=== PATIENT | male | born 1985 | race Caucasian/White ===

== ENCOUNTER 2019-04-12 13:41 | Emergency (ER) | payer BC ==
--- NOTE | 2019-04-12 14:00 | Emergency Department Record ---
History of Present Illness - General Chief complaint: Pain Stated complaint: PAIN RT SHOULDER/PEC MUSCLE Time Seen by Provider: 04/12/19 13:51 Source: Patient Mode of Arrival: Ambulatory Limitations: No limitations - History of Present Illness Initial comments: The patient is here due to R anterior shoulder and upper chest pain for 4 days. He was drinking and he was wrestling with a large man and woke up the next day with pain over the anterior shoulder. The pain is much worse with any bending, twisting or lifting of the R arm and shoulder. He denies any head injury or trauma or arm numbness. MD Complaint: Extremity pain, Other Onset/Timin -: Days(s) Severity scale (1-10): 2 Improves with: Nothing Worsens with: Exertion, Other - Related Data Home Medications Medication Instructions Recorded Confirmed Last Taken Aripiprazole [Abilify] 10 mg PO DAILY 04/12/19 04/12/19 04/12/19 Sertraline HCl [Zoloft] 50 mg PO DAILY 04/12/19 04/12/19 04/12/19 Previous Rx's Medication Instructions Recorded Naproxen [Naprosyn] 500 mg PO BID #14 tablet. 04/12/19 Allergies Allergy/AdvReac Type Severity Reaction Status Date / Time No Known Allergies Allergy none Verified 04/12/19 13:52 Travel Screening - Travel/Exposure Within Last 30 Days Have you traveled within the last 30 days?: No - Travel/Exposure Within Last Year Have you traveled outside the [place] in the last year?: No - Additonal Travel Details Have you been exposed to anyone with a communicable illness?: No Review of Systems Constitutional: Denies: Chills, Fever Eyes: Denies: Eye discharge ENT: Denies: Congestion Respiratory: Denies: Cough, Hemoptysis Past Medical History - SOCIAL HISTORY Smoking Status: Current every day smoker Alcohol Use: Occasional Drug Use: None - RESPIRATORY Hx Respiratory Disorders: No - CARDIOVASCULAR Hx Cardio Disorders: No - NEURO Hx Neuro Disorders: No - GI Hx GI Disorders: No - Hx Genitourinary Disorders: No - ENDOCRINE Hx Endocrine Disorders: No - MUSCULOSKELETAL Hx Musculoskeletal Disorders: No - PSYCH Hx Psych Problems: Yes Hx Depression: Yes - HEMATOLOGY/ONCOLOGY Hx Hematology/Oncology Disorders: No Family Medical History Any Significant Family History?: No Physical Exam - General General Appearance: Alert, Oriented x3, Cooperative, No acute distress - Head Head exam: Atraumatic, Normocephalic - Eye Eye exam: Normal appearance, PERRL - Neck Neck exam: Normal inspection, Full ROM. negative: Tenderness - Respiratory Respiratory exam: Normal lung sounds bilaterally. negative: Respiratory distress - Cardiovascular Cardiovascular Exam: Regular rate, Normal rhythm, Normal heart sounds - GI/Abdominal GI/Abdominal exam: Soft, Normal bowel sounds. negative: Tenderness - Extremities Extremities exam: Normal inspection, Full ROM (The R shoulder has full ROM with pain on extreme abduction and extension.), Normal capillary refill, Tenderness (There is tenderness to the anterior R shoulder and upper chest area. There is no swelling, erythema or any signs of trauma. ), Other (The R arm is NVI distally.) - Neurological Neurological exam: Alert, Normal gait. negative: Abnormal gait, Motor sensory deficit - Psychiatric Psychiatric exam: negative: Anxious Course Vital Signs 04/12/19 13:43 Temperature 97.5 F L Pulse Rate 91 H Respiratory 18 Rate Blood Pressure 140/99 Pulse Ox 97 - Reevaluation(s) Reevaluation #1: I did explain the need to rest the shoulder to the patient and to use Naprosyn for pain. He is to see his PCP next week if not better. 04/12/19 14:33 Medical Decision Making - Data Complexity MDM Data: X-Ray Ordered and/or Reviewed - Radiology Data Radiology results: Report reviewed (R Shoulder: Neg per Rad.) Disposition Disposition: Discharge Clinical Impression: Right shoulder strain Qualifiers: Encounter type: initial encounter Qualified Code(s): S46.911A - Strain of unspecified muscle, fascia and tendon at shoulder and upper arm level, right arm, initial encounter Disposition: Home, Self-Care Condition: (2) Stable Instructions: Muscle Strain (ED) Additional Instructions: Please rest the chest and R shoulder when possible and use Naprosyn for pain. Please see your doctor next week for recheck if not better. Return to the ER for any worsening symptoms. Prescriptions: Naproxen [Naprosyn] 500 mg PO BID #14 tablet.dr Forms: Patient Portal Access Time of Disposition: 14:34 Quality - Quality Measures Quality Measures: N/A - Blood Pressure Screening View Details: Yes Does Patient Have Any of the Following: No Blood Pressure Classification: Hypertensive Reading Systolic Measurement: 140 Diastolic Measurement: 99 Screening for High Blood Pressure: < First Hypertensive BP, F/U Documented > [G8950] First Hypertensive Follow-up Interventions: Referral to alternative/primary care provider.
--- NOTE | 2019-04-12 14:37 | Emergency Department Record ---
History of Present Illness - General Chief complaint: Pain Stated complaint: PAIN RT SHOULDER/PEC MUSCLE Time Seen by Provider: 04/12/19 13:51 Source: Patient Mode of Arrival: Ambulatory Limitations: No limitations - History of Present Illness Onset/Timin -: Days(s) Severity scale (1-10): 2 Improves with: Nothing Worsens with: Exertion, Other - Related Data Home Medications Medication Instructions Recorded Confirmed Last Taken Aripiprazole [Abilify] 10 mg PO DAILY 04/12/19 04/12/19 04/12/19 Sertraline HCl [Zoloft] 50 mg PO DAILY 04/12/19 04/12/19 04/12/19 Previous Rx's Medication Instructions Recorded Naproxen [Naprosyn] 500 mg PO BID #14 tablet. 04/12/19 Allergies Allergy/AdvReac Type Severity Reaction Status Date / Time No Known Allergies Allergy none Verified 04/12/19 13:52 Travel Screening - Travel/Exposure Within Last 30 Days Have you traveled within the last 30 days?: No - Travel/Exposure Within Last Year Have you traveled outside the [place] in the last year?: No - Additonal Travel Details Have you been exposed to anyone with a communicable illness?: No Review of Systems Constitutional: Denies: Chills, Fever Eyes: Denies: Eye discharge ENT: Denies: Congestion Respiratory: Denies: Cough, Hemoptysis Past Medical History - SOCIAL HISTORY Smoking Status: Current every day smoker Alcohol Use: Occasional Drug Use: None - RESPIRATORY Hx Respiratory Disorders: No - CARDIOVASCULAR Hx Cardio Disorders: No - NEURO Hx Neuro Disorders: No - GI Hx GI Disorders: No - Hx Genitourinary Disorders: No - ENDOCRINE Hx Endocrine Disorders: No - MUSCULOSKELETAL Hx Musculoskeletal Disorders: No - PSYCH Hx Psych Problems: Yes Hx Depression: Yes - HEMATOLOGY/ONCOLOGY Hx Hematology/Oncology Disorders: No Family Medical History Any Significant Family History?: No Physical Exam - General Limitations: No limitations - Back Image of Body Front/Back: 1 - Area of pain and tenderness. Course Vital Signs 04/12/19 13:43 Temperature 97.5 F L Pulse Rate 91 H Respiratory 18 Rate Blood Pressure 140/99 Pulse Ox 97 Disposition Clinical Impression: Right shoulder strain Qualifiers: Encounter type: initial encounter Qualified Code(s): S46.911A - Strain of unspecified muscle, fascia and tendon at shoulder and upper arm level, right arm, initial encounter Disposition: Home, Self-Care Condition: (2) Stable Instructions: Muscle Strain (ED) Additional Instructions: Please rest the chest and R shoulder when possible and use Naprosyn for pain. Please see your doctor next week for recheck if not better. Return to the ER for any worsening symptoms. Prescriptions: Naproxen [Naprosyn] 500 mg PO BID #14 tablet.dr Forms: Patient Portal Access Quality - Quality Measures Quality Measures: N/A - Blood Pressure Screening View Details: Yes Does Patient Have Any of the Following: No Blood Pressure Classification: Hypertensive Reading Systolic Measurement: 140 Diastolic Measurement: 99 Screening for High Blood Pressure: < First Hypertensive BP, F/U Documented > [G8950] First Hypertensive Follow-up Interventions: Referral to alternative/primary care provider.
--- NOTE | 2019-04-13 20:11 | RADIOLOGY REPORT ---
EXAM: SHOULDER, RIGHT HISTORY: RIGHT SHOULDER PAIN AFTER WRESTLING. DECREASED RANGE OF MOTION. TECHNIQUE: Three views of the right shoulder. COMPARISON: None. ENCOUNTER: Initial. FINDINGS: There is normal bone mineralization. No acute fracture, dislocation, or destructive bone lesion is seen. The articular relations are maintained. No periarticular soft tissue abnormality identified. IMPRESSION: NO ACUTE BONE NOR JOINT ABNORMALITY. JOB NUMBER: [id number] [facility]
== END 2019-04-12 14:57 | disposition home or self-care (01) ==
LOC: ER 13:41
DX: S46.911A Strain of unspecified muscle, fascia and tendon at shoulder and upper arm level, right arm, initial encounter (principal); R07.9 Chest pain, unspecified; Y93.72 Activity, wrestling; F17.210 Nicotine dependence, cigarettes, uncomplicated
CPT/HCPCS: 99283